=== PATIENT | male | born 1955 ===

== ENCOUNTER 2018-08-27 13:22 | Inpatient (IN) | payer MEDICAID ==
[~2018-08-27] VITALS: Ht 172.7 cm; Wt 79.4 kg
[2018-08-27] MEDS ORDERED: PANTOPRAZOLE SODIUM 40 MG VIAL IV ONE (13:45)
[2018-08-27] MEDS ORDERED: ONDANSETRON 4 MG/2 ML VIAL IV ONE (14:00)
[2018-08-27] MEDS ORDERED: VANCOMYCIN 1G/D5W 200 ML PIGGYBACK IV ONE (14:00)
[2018-08-27] MEDS ORDERED: MORPHINE SULFATE 2 MG/1 ML DISP.SYRIN IV ONE (14:00)
[2018-08-27] MEDS ORDERED: PANTOPRAZOLE SODIUM 40 MG VIAL ONE (14:01)
[2018-08-27] MEDS ORDERED: ONDANSETRON 4 MG/2 ML VIAL ONE (14:05)
[2018-08-27] MEDS ORDERED: VANCOMYCIN IV 200 ML ONE (14:05)
[2018-08-27] MEDS ORDERED: MORPHINE SULFATE 4 MG/1 ML DISP.SYRIN ONE (14:05)
[2018-08-27 14:11] LABS: POTASSIUM 3.4 mmol/L (3.5-5.1)
[2018-08-27 14:25] LABS: BILIRUBIN,DIRECT 0.1 mg/dL (0.0-0.2); BILIRUBIN,TOTAL 0.2 mg/dL (0.2-1.0); TOTAL PROTEIN, SERUM 7.8 g/dL (6.4-8.2)
[2018-08-27 14:34] LABS: BASOPHILS # (AUTO) 0.1 K/uL (0.0-8.0); BASOPHILS % (AUTO) 0.7 % (0.0-2.0); EOSINOPHILS # (AUTO) 0.3 K/uL (0.0-0.7); EOSINOPHILS % (AUTO) 2.3 % (0.0-7.0); HEMATOCRIT 38.7 % (36.7-47.1); HEMOGLOBIN 13.1 g/dL (12.5-16.3); LYMPHOCYTES # (AUTO) 2.5 K/uL (20.0-40.0); LYMPHOCYTES % (AUTO) 22.4 % (20.5-51.5); MEAN CORPUSCULAR HGB CONC 34 g/dL (32.5-36.3); MEAN CORPUSCULAR VOLUME 88.7 fL (73.0-96.2); MONOCYTES # (AUTO) 0.8 K/uL (2.0-10.0); MONOCYTES % (AUTO) 7.3 % (0.0-11.0); NEUTROPHILS # (AUTO) 7.5 K/uL (1.8-8.9); NEUTROPHILS % (AUTO) 67.3 % (38.5-71.5); PLATELET COUNT (AUTO) 410 K/uL (152-348); RED BLOOD CELL COUNT(AUTO) 4.37 MIL/uL (4.06-5.63); WHITE BLOOD COUNT (AUTO) 11.2 K/uL (3.6-10.2)
[2018-08-27] MEDS ORDERED: LORAZEPAM 2 MG/1 ML VIAL ONE (14:52)
[2018-08-27] MEDS ORDERED: LORAZEPAM 2 MG/1 ML VIAL IV ONE ×2 (15:00→16:00)
[2018-08-27] MEDS ORDERED: IV NS 1000 ML 1,000 ML IV PRN (19:10)
[2018-08-27] MEDS ORDERED: MORPHINE SULFATE 2 MG/1 ML DISP.SYRIN IV PRN (19:15)
[2018-08-27] MEDS ORDERED: NITROGLYCERIN 0.4 MG/TAB BOTTLE SL PRN (19:15)
[2018-08-27] MEDS ORDERED: ONDANSETRON 4 MG/2 ML VIAL IV PRN (19:15)
[2018-08-27] MEDS ORDERED: MORPHINE SULFATE 4 MG/1 ML DISP.SYRIN IV PRN (20:00)
[2018-08-27 20:34] VITALS: BP 127/63
[2018-08-27] MEDS: CARVEDILOL 6.25 MG TABLET PO SCH (20:51)
[2018-08-27] MEDS: ASPIRIN 81 MG TAB.CHEW PO SCH (20:51)
[2018-08-27] MEDS: FOLIC ACID 1 MG TABLET PO SCH (20:51)
[2018-08-27] MEDS: THIAMINE HCL 100 MG TABLET PO SCH (21:02)
[2018-08-28 00:07] VITALS: BP 125/62
[2018-08-28 04:00] VITALS: BP 132/63
[2018-08-28 05:54] VITALS: BP 132/63
[2018-08-28] MEDS: FOLIC ACID 1 MG TABLET PO SCH (09:07)
[2018-08-28] MEDS: ASPIRIN 81 MG TAB.CHEW PO SCH (09:07)
[2018-08-28] MEDS: THIAMINE HCL 100 MG TABLET PO SCH (09:07)
[2018-08-28] MEDS: CARVEDILOL 6.25 MG TABLET PO SCH ×2 (09:08→17:11)
[2018-08-28] MEDS: LORAZEPAM 0.5 MG TABLET PO PRN ×3 (09:09→21:21)
[2018-08-28 12:00] VITALS: BP 129/75
[2018-08-28 16:00] VITALS: BP 130/75
[2018-08-28 19:23] LABS: BASOPHILS # (AUTO) 0.1 K/uL (0.0-8.0); EOSINOPHILS # (AUTO) 0.2 K/uL (0.0-0.7); EOSINOPHILS % (AUTO) 3.6 % (0.0-7.0); HEMATOCRIT 33.7 % (36.7-47.1); HEMOGLOBIN 11.8 g/dL (12.5-16.3); LYMPHOCYTES # (AUTO) 2.1 K/uL (20.0-40.0); MEAN CORPUSCULAR HGB CONC 35 g/dL (32.5-36.3); MEAN CORPUSCULAR VOLUME 85.6 fL (73.0-96.2); MONOCYTES # (AUTO) 0.5 K/uL (2.0-10.0); MONOCYTES % (AUTO) 6.9 % (0.0-11.0); NEUTROPHILS # (AUTO) 3.9 K/uL (1.8-8.9); NEUTROPHILS % (AUTO) 57.5 % (38.5-71.5); PLATELET COUNT (AUTO) 302 K/uL (152-348); RED BLOOD CELL COUNT(AUTO) 3.94 MIL/uL (4.06-5.63); WHITE BLOOD COUNT (AUTO) 6.8 K/uL (3.6-10.2)
[2018-08-28 19:35] LABS: MAGNESIUM 1.7 mg/dL (1.8-2.4); PHOSPHOROUS 3.2 mg/dL (2.5-4.9); POTASSIUM 3.9 mmol/L (3.5-5.1)
[2018-08-28 20:00] VITALS: BP 109/43
[2018-08-28] MEDS: DOXYCYCLINE HYCLATE 100 MG TABLET PO SCH (20:26)
[2018-08-29 05:30] VITALS: BP 108/52
[2018-08-29] MEDS: LORAZEPAM 0.5 MG TABLET PO PRN (08:26)
[2018-08-29] MEDS: THIAMINE HCL 100 MG TABLET PO SCH (08:26)
[2018-08-29] MEDS: FOLIC ACID 1 MG TABLET PO SCH (08:26)
[2018-08-29] MEDS: CARVEDILOL 6.25 MG TABLET PO SCH (08:27)
[2018-08-29] MEDS: DOXYCYCLINE HYCLATE 100 MG TABLET PO SCH (08:27)
[2018-08-29] MEDS: ASPIRIN 81 MG TAB.CHEW PO SCH (08:27)
[2018-08-29] MEDS ORDERED: ISOSORBIDE MONONITRATE 30 MG TAB.SR.24H PO SCH (09:00)
[2018-08-29 12:00] VITALS: BP 123/62
[2018-08-29] MEDS ORDERED: CARV6.252 PO (14:38)
[2018-08-29] MEDS ORDERED: DOXY100T2 PO (14:38)
[2018-08-29] MEDS ORDERED: ASPI81TA31 PO (14:38)
== END 2018-08-29 15:55 | disposition home or self-care (01) | DRG 392 ==
LOC: ER 13:22 → TELE 18:42 → MED 08-28 17:24
PROVIDERS: ADMIT Internal Medicine; ATTEND Internal Medicine
DX: K21.9 Gastro-esophageal reflux disease without esophagitis (principal); L03.114 Cellulitis of left upper limb; R07.9 Chest pain, unspecified; F10.129 Alcohol abuse with intoxication, unspecified; Y90.7 Blood alcohol level of 200-239 mg/100 ml; Z59.0 Homelessness; I25.2 Old myocardial infarction; Z96.643 Presence of artificial hip joint, bilateral; I25.10 Atherosclerotic heart disease of native coronary artery without angina pectoris; Z98.61 Coronary angioplasty status; E83.42 Hypomagnesemia; D64.9 Anemia, unspecified; M46.04 Spinal enthesopathy, thoracic region
CPT/HCPCS: 36415; 70030-TC; 71045; 73130; 83735; 84100; 85025; 85730; 93005; 93307; A4663; C9113; G0378; G0480; J2060; J2270; J2405; J3370; J7030

== ENCOUNTER 2022-11-14 02:01 | Emergency (ER) | payer MEDICARE, OTHER ==
[~2022-11-14] VITALS: Ht 175.3 cm; Wt 117.9 kg
[~2022-11-14 02:01] MED LIST: ASPI81TA31 PO; CARV6.252 PO; DOXY100T2 PO
[2022-11-14] MEDS ORDERED: ONDANSETRON ODT 4 MG TAB.RAPDIS ONE (02:27)
[2022-11-14] MEDS ORDERED: OXYCODONE/APAP 5-325 MG TABLET ONE (02:28)
[2022-11-14] MEDS ORDERED: SULFAMETH/TRIMETH 800/160 MG TABLET ONE (02:28)
[2022-11-14] MEDS ORDERED: ONDANSETRON ODT 4 MG TAB.RAPDIS SL ONE (02:30)
[2022-11-14] MEDS ORDERED: OXYCODONE/APAP 5-325 MG TABLET PO ONE (02:30)
[2022-11-14] MEDS ORDERED: SULFAMETH/TRIMETH 800/160 MG TABLET PO ONE (02:30)
[2022-11-14] MEDS ORDERED: CLONIDINE HCL 0.1 MG TABLET ONE (02:36)
[2022-11-14] MEDS ORDERED: METO25TA6 PO (02:39)
[2022-11-14] MEDS ORDERED: SULF1TAB48 PO (02:39)
[2022-11-14] MEDS ORDERED: METF-440 PO (02:39)
[2022-11-14] MEDS ORDERED: OXYC-128 PO (02:39)
[2022-11-14] MEDS ORDERED: CLONIDINE HCL 0.1 MG TABLET PO ONE (02:45)
[2022-11-14] MEDS ORDERED: METFORMIN HCL 500 MG TABLET ONE (02:57)
--- NOTE | 2022-11-14 02:59 | NUR ---
Patient discharged to home in stable condition. Written and verbal after care instructions given. Patient verbalizes understanding of instructions. Stressed follow up or return to ER for worsening s/s. Patient is a/ox4, NAD noted. patient ambulated with a cane
[2022-11-14] MEDS ORDERED: METFORMIN HCL 500 MG TABLET PO ONE (03:00)
--- NOTE | 2022-11-14 03:05 | NUR ---
Patient refuses offer of skilled nursing placement. Patient given list of available shelters in surrounding area.
[2022-11-14 03:53] VITALS: BP 138/93
== END 2022-11-14 03:53 | disposition home or self-care (01) ==
LOC: ER 02:14
DX: S93.401A Sprain of unspecified ligament of right ankle, initial encounter (principal); R21 Rash and other nonspecific skin eruption; I10 Essential (primary) hypertension; E11.9 Type 2 diabetes mellitus without complications; I25.10 Atherosclerotic heart disease of native coronary artery without angina pectoris; Z76.0 Encounter for issue of repeat prescription; Z59.00 Homelessness unspecified; Z79.82 Long term (current) use of aspirin; Z79.84 Long term (current) use of oral hypoglycemic drugs; Z79.899 Other long term (current) drug therapy; X50.1XXA Overexertion from prolonged static or awkward postures, initial encounter; Y93.89 Activity, other specified; Y92.89 Other specified places as the place of occurrence of the external cause; Y99.8 Other external cause status
CPT/HCPCS: 73610; A4663; Q0162